=== PATIENT | female | born 1975 | race Caucasian/White ===

== ENCOUNTER 2024-05-27 05:53 | Emergency (ER) | payer OTHER, SELFPAY ==
--- NOTE | 2024-05-27 05:57 | ED.GENMED ---
History of Present Illness
General
Chief Complaint: Crisis Evaluation
Source: patient and police
Exam Limitations: clinical condition
Time Seen by Provider: 05/27/24 05:54
Nursing documentation reviewed up to this point in time: agreed with
History of Present Illness
History of Present Illness:
48-year-old female with reported medical history of Crohn's disease who presents to the emergency room in police custody on a 302 filed by police�302 filed after patient was found acutely agitated running in traffic and accosting cars. Patient very
agitated on arrival and not participating in history. She appears to be actively hallucinating and delusional. According to police who brought her in they found her running out of traffic and banging on car windows. She was telling people that
they are 'possessed' and saying that she is concerned she might . The officer reports that she has been having conversations with her self. Apparently known to police with similar episodes in the past.
Past History
Past History
ED Past Medical History: None
Social History
Drug: None
Living: with family
Employment: Employed
Family History
Family History: Other (No significant)
Review of Systems
Review of Systems
Unable to obtain full review of systems at this time due to: other (Acutely psychotic)
All Other Systems: Not applicable
Phy Exam
Physical Exam
Physical Exam:
General: Awake, alert, agitated and screaming, appears to be responding to internal stimuli (she is having a conversation with someone named '[place]' about being crucified during my assessment)
Head: Normocephalic, atraumatic
Eyes: Conjunctiva normal, pupils approximately 4 mm and reactive to light bilaterally, extraocular movements are intact
Throat: Airway intact, handling secretions
Neck: Trachea midline, supple without meningismus
Lungs: Clear to auscultation bilaterally, no wheezing, rales, rhonchi
Heart: Regular rate and rhythm, no murmurs, gallops, or rubs
Abd: Soft, non distended, nontender
Neuro: No gross deficits
Skin: no rash
Extremities: Warm and well-perfused
Psych: Anxious mood, agitated, responding to internal stimuli, delusional thinking
Scores
Heart Failure Risk
Heart Failure Risk Score: Not Applicable
Heart Score for Chest Pain Patients
STEMI patient?: Not applicable
Withdrawal Assessment of Alcohol
Withdrawal Assessment Completed?: Not applicable
Course
Orders/Labs/Results
Orders:
Orders
05/27/24 05:55
Acetaminophen Urgent
Alcohol Urgent
Complete Blood Count/With Diff Urgent
Comprehensive Metabolic Panel Urgent
Drug Screen, Urine [Urine Drug Abuse Screen] Urgent
HCG, Serum Qualitative Screen Urgent
Salicylate Urgent
Urinalysis Reflex To Culture Urgent
Test Result ONCE
05/27/24 05:56
Haloperidol Lactate [Haldol] 5 mg IM NOW STA
05/27/24 05:57
Electrocardiogram (*1) Urgent
Reason for Study: QTc Monitoring
EKG- Treatment ONCE
Haloperidol Lactate [Haldol] 5 mg .ROUTE .STK-MED ONE
05/27/24 06:04
Crisis Consult Routine
Reason for Consult: delusions, hallucinations, agitated--c/f psychosis
MDM/Problems Addressed
Differential Diagnosis Includes:
Acute psychosis, drug/alcohol use
MDM/Problems Addressed:
48-year-old female presents to the emergency room in police custody on a 302 filed for concern for psychosis. Apparently agitated, delusional and hallucinating. This is how she appears to us as described above. Very agitated and not redirectable,
was given IM Haldol for chemical sedation for patient and staff safety. Required restraints to start but will de-escalate restraints as quickly as able. Will send basic screening labs, tox screen, UDS. Check screening EKG. Reassess after the
above.
*Pulse Oximetry
Patient hypoxic: no
*Critical Care Note
Total Time (30-74mins, 75-104mins- exclusive of procedures): Not Applicable
Data Reviewed
Source: patient and police
Patient Management
Discussion with other providers: Other (Discussed with crisis staff)
ED Attending Note
-
Portions of this chart may have been created with voice recognition software.� Occasional wrong word or��sound alike� substitutions may have occurred due to the inherent limitations of voice recognition software.
Discharge Plan
Departure
Prescriptions:
No Action
buprenorphine-naloxone 1 TAB tablet, sublingual
1 ea sublingual TID
Discharge Date and Time
Print Language: MARSHALLESE
[2024-05-27] MEDS: HALDOL 5 MG IM (06:00)
[2024-05-27 08:00] VITALS: BP 110/75
[2024-05-27 08:29] LABS: % Basophils 0.3 % (0-2); % Immature Granulocytes 0.3 % (0-0.5); % Lymphocytes 8.7 % (20.5-51.1); % Monocytes 9.4 % (1.7-9.3); % Neutrophils 81.3 % (42.2-75.2); Absolute Basophils 0.1 10^3/uL (0-0.2); Absolute Immature Granulocytes 0.1 10^3/uL (0-0.05); Absolute Lymphocytes 1.3 10^3/uL (1.2-3.4); Absolute Monocytes 1.4 10^3/uL (0.1-0.6); Absolute Neutrophils 11.7 10^3/uL (1.4-6.5); Hematocrit 37.3 % (37.0-47.0); Hemoglobin 13.1 g/dL (12.0-16.0); Mean Corp Hgb Conc. 35.1 g/dL (33.0-37.0); Mean Corpuscular Hgb 28.9 pg (27.0-31.0); Mean Corpuscular Volume 82.2 fL (81.0-99.0); Nucleated Red Blood Cells % 0 %; Platelet Count 246 10^3/uL (130-400); Red Blood Cell Count 4.54 10^6/uL (4.20-5.40); Red Cell Dist. Width 12.8 % (11.5-14.5); White Blood Cell Count 14.5 10^3/uL (4.8-10.8)
[2024-05-27 08:33] LABS: HCG, Serum Qualitative Screen Negative
[2024-05-27 08:35] LABS: ALT (SGPT) 16 U/L (0-35); AST (SGOT) 30 U/L (14-36); Albumin 4.6 g/dl (3.5-5.0); Blood Urea Nitrogen 10 mg/dl (7-17); Carbon Dioxide 24 mmol/L (22-30); Glucose 118 mg/dl (70-99); Total Protein 7.2 g/dl (6.3-8.2); eGFR > 60.00
[2024-05-27 08:46] LABS: Acetaminophen < 10 ug/ml (10-30); Alkaline Phosphatase 71 U/L (38-126); Chloride 100 mmol/L (98-107); Potassium 3.8 mmol/L (3.5-5.1); Salicylate < 1.0 mg/dl (2.0-20.0); Sodium 135 mmol/L (135-145)
[2024-05-27 08:47] LABS: Alcohol None Detected
[2024-05-27 10:00] VITALS: BP 103/62
--- NOTE | 2024-05-27 13:33 | CON.MD ---
Addendum entered and electronically signed by Tracy Hess MD 05/27/24 15:07:
patient asked if she could have 'colchicine for my gout.' she had previously denied any medical illnesses other than fibromyalgia and crohn's asked er md's to please address this w her (dr enriquez coming on)
Addendum entered and electronically signed by Tracy Hess MD 05/27/24 14:03:
pdmp adderall obtained monthly last 05/23 #60 30 mg bid xanax 1 mg #60 one bid 04/28 buprenorphine 8 mg #60 one bid on 05/18 . will hold off on adderal. will order xanax o.5 mg tid given xanax in my opinion is not advisable but cannot stop
abruptly. buprenorphine half dose given earlier sedation today. monitor re withdrawal. discussed w pharmacy.
Original Note:
Consultation - Medical
-
patient seen chart reviewed. patient is a 48 year old woman brought to crisis by the police who were called to the scene but a citizen as patient was walking in the middle of the street , pounding on car windows and yelling at [employer]. she
reportedly told the police to kill her and that she was possessed. she was described as talking to herself, delusional and hallucinating. she was agitated coming in the ER and required haldol im for sedation and was in restraints for a short time.
the patient is a very poor historian . she told me she is here because she was trying to catch material raining down from the [place] 'i was trying to spread it out...and it came own on me like glue...i couldn't breathe it was so thick.' she also said
someone was after her bc her son was the son of god. the patient tells me she has been hospitalized many times psychiatrically but she could not supply details. from the [facility] record it is noted that she was hospitalized at [facility] in 2017
after being seen in the ER again brought by the police. she was described as being paranoid and threatening to harm bf's children. at present she denies psychiatric problems. she reports she is taking klonopin one mg bid suboxone for pain of
fibromyalgia and adderall. she denies depression. she suffers from anxiety. she has chronic pain 'all over'. appetite fair. she denies suicidality or thoughts of harming others.
medical see above. noted in record hx of crohn's which patient reports is accurate. also fibromyalgia meds as above. labs w high wbc left shift. glucose 118 not fasting vital signs ok
substance abuse patient denies hx of substance abuse . she has until now refused to give urine for uds now says she will cooperate
denied
social patient born locally but no family or friends in the area. she says family in [place] but she is not in touch. she is on disability.
mse alert oriented to person time and 'hospital'. she thought she was in [place]. patient unable to give a factual hx frequently did not answer or was vague and said she did not know. appears to be delusional and paranoid denies hallucinations
and suicidality. no thoughts expressed re harm to others. average intelligence insight and judgment lacking
dx unspecified psychosis r.o drug use
plan hopefully patient will supply urine sample will order buprenorphine and klonopin so as to avoid withdrawal prn risperdal / ativan for agitation aggression will check pdmp re controlled substance scrips and ask pharmacy to verify
buprenorphine dosage. 302 was already upheld by telepsych with which i agree. crisis staff will start to seek a psych bed for in pt admit.
[2024-05-27 13:44] LABS: Urine Albumin Negative (Neg - Trace); Urine Bilirubin Negative (Negative); Urine Character Clear (Clear); Urine Color Yellow; Urine Glucose Negative (Negative); Urine Ketone 1+ (Negative); Urine Leukocyte Negative (Negative); Urine Nitrite Negative (Negative); Urine Occult Blood Negative (Negative); Urine Specific Gravity 1.015 (<1.030); Urine Urobilinogen Negative (Neg - 1+)
[2024-05-27 14:08] LABS: Amphetamines Positive (Negative); Barbiturates Negative (Negative); Benzodiazepines Negative (Negative); Buprenorphine Positive (Negative); Cocaine Negative (Negative); Marijuana Negative (Negative); Methadone Negative (Negative); Methamphetamines Negative (Negative); Opiates Negative (Negative); Phencyclidine Negative (Negative); Tricyclic Antidepressants Negative (Negative)
[2024-05-27 14:19] LABS: Fentanyl, Urine Negative (Negative)
[2024-05-27] MEDS: XANAX 0.5 MG PO (16:24)
[2024-05-27 17:20] VITALS: BP 99/65
[2024-05-27] MEDS: SUBUTEX 4 MG SL (19:51)
[2024-05-27 20:09] VITALS: BP 105/66
== END 2024-05-27 20:10 ==
LOC: EMR 05:53
PROVIDERS: EMERGENCY PHYSICIAN Emergency Medicine; OTHER PHYSICIAN Psychiatry & Neurology Psychiatry
DX: F23 Brief psychotic disorder (principal); K50.90 Crohn's disease, unspecified, without complications
CPT/HCPCS: 99285; 96372; 80053; 80143; 80179; 80306; 80307; 81003; 82077; 84703; 85025; 93005